=== PATIENT | male | born 1970 | race African-American/Black ===

== ENCOUNTER 2020-11-14 06:05 | Day surgery (SDC) | payer OTHER ==
[2020-11-13 10:00] VITALS: BMI 28.8
[2020-11-14] MEDS ORDERED: Fentanyl 100 MCG/2 ML VIAL ONE (06:13)
[2020-11-14] MEDS ORDERED: Famotidine/PF 20 mg/2ml Vial ONE (06:13)
[2020-11-14] MEDS ORDERED: SUGAMMADEX SODIUM 500 MG/5 ML VIAL ONE (06:13)
[2020-11-14] MEDS ORDERED: Acetaminophen 500 MG TAB ONE (06:43)
[2020-11-14] MEDS ORDERED: Gabapentin 300 MG CAP ONE (06:43)
[2020-11-14] MEDS ORDERED: Ketorolac Tromethamine 30 MG/ML VIAL ONE (06:43)
[2020-11-14] MEDS ORDERED: Lidocaine 1% w/Epinephrine 1:100K 20 ML VIAL ONE (07:40)
[2020-11-14] MEDS ORDERED: Bupivacaine 0.25% HCL 30 ML VIAL ONE (07:40)
[2020-11-14] MEDS ORDERED: Dexamethasone 20 MG/5 ML VIAL ONE (07:56)
[2020-11-14] MEDS ORDERED: Metoclopramide HCl 10 MG/2 ML VIAL ONE (07:56)
[2020-11-14] MEDS ORDERED: Ondansetron PF 4 MG/2 ML Vial ONE (07:56)
[2020-11-14] MEDS ORDERED: Rocuronium Bromide 10 MG/ML (10ML VIAL) ONE (07:56)
[2020-11-14] MEDS ORDERED: PROPOFOL 200 MG/20 ML VIAL ONE (07:56)
[2020-11-14] MEDS ORDERED: Albuterol Sulfate HFA (OR ONLY) ONE (07:56)
[2020-11-14] MEDS ORDERED: Lidocaine 1% PF 5 ML VIAL ONE (07:56)
[2020-11-14] MEDS ORDERED: HYDROcodone/Acetaminophen 5/325 mg Tablet ONE (11:39)
== END 2020-11-14 12:42 | disposition home or self-care (01) ==
LOC: SDC 06:05
PROVIDERS: ATTEND Specialist
PROC: 0YU64JZ Supplement Left Inguinal Region with Synthetic Substitute, Percutaneous Endoscopic Approach (ICD-10-PCS; principal; 2020-11-14)
DX: K40.90 Unilateral inguinal hernia, without obstruction or gangrene, not specified as recurrent (principal); J45.909 Unspecified asthma, uncomplicated; Z79.899 Other long term (current) drug therapy
CPT/HCPCS: 93005; 93010; C1781; J0690; J1100; J1885; J2405; J2704; J2765; J3010; S0020; S0028